=== PATIENT | male | born 1980 | race Caucasian/White ===

== ENCOUNTER 2018-12-03 04:57 | Emergency (ER) | payer MEDICARE, OTHER ==
[~2018-12-03] VITALS: Ht 177.8 cm; Wt 86.2 kg
[~2018-12-03 04:57] MED LIST: DICY20 PO; GABA100 PO; HYDMOR2 PO; HYDMOR4 PO; IBUP600 PO; LISI5 PO; LUNESTA; MECL25 PO; NEFA50 PO; OMEPRAZOLE; ONDA4ODT MM; ONDA8ODT MM; PROM25 PO; PROPRANOLOL; RANI150 PO; ROSU5 PO; RXONDA4ODT MM; RXOXYACE PO; TOPI100 PO; [UNRECOGNIZED DRUG - OTHER]
== END 2018-12-03 06:18 | disposition home or self-care (01) ==
LOC: ER 04:57
DX: G43.909 Migraine, unspecified, not intractable, without status migrainosus (principal); I10 Essential (primary) hypertension; E78.5 Hyperlipidemia, unspecified; Z79.899 Other long term (current) drug therapy
CPT/HCPCS: 96361; 96374; 96375; 99283-25; J0780; J1200; J1885; J7030

== ENCOUNTER 2018-12-26 03:40 | Emergency (ER) | payer OTHER, MEDICARE ==
[~2018-12-26] VITALS: Ht 175.3 cm; Wt 72.6 kg
== END 2018-12-26 06:17 | disposition home or self-care (01) ==
LOC: ER 03:40
DX: R51 Headache (principal); Z79.899 Other long term (current) drug therapy
CPT/HCPCS: 96372-59; 96374; 96375; 99283-25; J1200; J1630; J1885; J2405; J3030; J7030

== ENCOUNTER 2019-01-29 02:31 | Emergency (ER) | payer MEDICARE, OTHER ==
[~2019-01-29] VITALS: Ht 175.3 cm; Wt 72.6 kg
== END 2019-01-29 04:05 | disposition home or self-care (01) ==
LOC: ER 02:31
DX: G43.909 Migraine, unspecified, not intractable, without status migrainosus (principal); Z79.899 Other long term (current) drug therapy; I10 Essential (primary) hypertension
CPT/HCPCS: 96361; 96374; 96375; 99283-25; J0780; J1200; J1630; J1885; J7030

== ENCOUNTER 2019-03-31 10:10 | Emergency (ER) | payer MEDICARE, OTHER ==
[~2019-03-31] VITALS: Ht 175.3 cm; Wt 74.8 kg
== END 2019-03-31 11:36 | disposition home or self-care (01) ==
LOC: ER 10:10
DX: G43.909 Migraine, unspecified, not intractable, without status migrainosus (principal); Z79.899 Other long term (current) drug therapy; I10 Essential (primary) hypertension
CPT/HCPCS: 96361; 96374; 96375; 99283-25; J0780; J1100; J1200; J1885; J7030

== ENCOUNTER 2019-12-01 08:33 | Emergency (ER) | payer OTHER, MEDICARE ==
[~2019-12-01] VITALS: Ht 175.3 cm; Wt 74.8 kg
[~2019-12-01 08:33] MED LIST changes: +COMPOUND DRUG
== END 2019-12-01 10:08 | disposition home or self-care (01) ==
LOC: ER 08:33
DX: G43.909 Migraine, unspecified, not intractable, without status migrainosus (principal)
CPT/HCPCS: 96361; 96374; 96375; 99283-25; J0780; J1200; J1885; J3030; J7120

== ENCOUNTER 2019-12-30 04:51 | Emergency (ER) | payer MEDICARE, OTHER ==
[~2019-12-30] VITALS: Ht 175.3 cm; Wt 74.8 kg
[2019-12-30] MEDS ORDERED: PROM25 (07:49)
== END 2019-12-30 08:03 | disposition home or self-care (01) ==
LOC: ER 04:51
DX: G43.909 Migraine, unspecified, not intractable, without status migrainosus (principal); Z79.899 Other long term (current) drug therapy; Z87.820 Personal history of traumatic brain injury
CPT/HCPCS: 96374; 96375; 99283-25; J1100; J1200; J1885; J2765; J7030

== ENCOUNTER 2020-01-08 09:41 | Emergency (ER) | payer OTHER, MEDICARE ==
[~2020-01-08] VITALS: Ht 175.3 cm; Wt 72.6 kg
[~2020-01-08 09:41] MED LIST changes: +PROM25
== END 2020-01-08 11:28 | disposition home or self-care (01) ==
LOC: ER 09:41
DX: G43.909 Migraine, unspecified, not intractable, without status migrainosus (principal)
CPT/HCPCS: 96361; 96372-59; 96374; 96375; 99282-25; J0780; J1100; J1200; J1885; J3030; J7030

== ENCOUNTER 2020-06-10 05:23 | Emergency (ER) | payer MEDICARE, OTHER ==
[~2020-06-10] VITALS: Ht 175.3 cm; Wt 78.9 kg
[2020-06-10 05:55] LABS: BASOPHILS ABSOLUTE AUTO 0.05 K/mm3 (0.00-0.23); BASOPHILS PERCENT AUTO 1 % (0-2); EOSINOPHILS ABSOLUTE AUTO 0.09 K/mm3 (0.00-0.68); EOSINOPHILS PERCENT AUTO 1 % (0-6); Hematocrit 48.7 % (37.0-53.0); IMMATURE GRAN ABSOLUTE AUTO 0.03 K/mm3 (0.00-0.10); IMMATURE GRAN PERCENT AUTO 0 % (0-1); LYMPHOCYTES ABSOLUTE AUTO 3.39 K/mm3 (0.84-5.20); LYMPHOCYTES PERCENT AUTO 36 % (21-46); MONOCYTES ABSOLUTE AUTO 0.81 K/mm3 (0.16-1.47); MONOCYTES PERCENT AUTO 9 % (4-13); Mean Corpuscular HGB 29.9 pg (26.0-34.0); Mean Corpuscular HGB Conc 34.9 g/dL (31.5-36.5); Mean Corpuscular Volume 86 fL (80-100); Mean Platelet Volume 8.8 fL (9.1-12.4); NEUTROPHILS ABSOLUTE AUTO 5.05 K/mm3 (1.96-9.15); NEUTROPHILS PERCENT AUTO 54 % (41-73); Platelet Count 244 K/mm3 (150-400); RDW Coefficient Variation 12.7 % (11.7-14.2); RDW Standard Deviation 39.3 fL (35.1-46.3); Red Blood Cell Count 5.68 M/mm3 (4.30-5.90); White Blood Cell Count 9.42 K/mm3 (4.00-11.30)
[2020-06-10 06:13] LABS: Alanine Aminotransfer (ALT/SGP 36 U/L (12-78); Albumin, Blood 4.4 g/dL (3.4-5.0); Albumin/Globulin Ratio 1.3 (0.8-1.8); Alk Phos 56 U/L (50-136); Anion Gap 7 mmol/L (6-16); Aspartate Aminotrans (AST/SGOT 23 U/L (12-37); Bilirubin, Total 0.3 mg/dL (0.1-1.0); Blood Urea Nitrogen 17 mg/dL (8-24); Bun/Creatinine Ratio 19.3 (12.0-20.0); CO2, Blood 26 mmol/L (21-32); Calcium, Blood 9.5 mg/dL (8.5-10.1); Chloride, Blood 106 mmol/L (98-108); Creatinine, Blood 0.88 mg/dL (0.60-1.20); Globulin, Blood 3.3 g/dL (2.2-4.0); Glomerular Filtration Rate >60 (60-); Glucose, Blood 123 mg/dL (70-99); Magnesium, Blood 2.3 mg/dL (1.6-2.4); Potassium, Blood 3.7 mmol/L (3.5-5.5); Sodium, Blood 139 mmol/L (136-145); Total Protein, Blood 7.7 g/dL (6.4-8.2)
== END 2020-06-10 07:31 | disposition home or self-care (01) ==
LOC: ER 05:23
PROVIDERS: Emergency Medicine
DX: G43.909 Migraine, unspecified, not intractable, without status migrainosus (principal); I10 Essential (primary) hypertension
CPT/HCPCS: 80053; 83605; 83735; 85025; 96361; 96372-59; 96374; 96375; 99283-25; J0780; J1100; J1200; J1885; J3030; J7030